=== PATIENT | female | born 1980 | race Asian ===

== ENCOUNTER 2019-01-13 15:05 | Outpatient (CLI) | payer MEDICARE ==
[~2019-01-13] VITALS: Ht 165.1 cm; Wt 70.9 kg
[2019-01-13 15:09] VITALS: BP 116/68
== END 2019-01-13 15:59 | disposition home or self-care (01) ==
LOC: LDOP 15:05
PROVIDERS: ATTEND Obstetrics & Gynecology
DX: O26.893 Other specified pregnancy related conditions, third trimester (principal); Z3A.35 35 weeks gestation of pregnancy; R10.9 Unspecified abdominal pain; Z88.0 Allergy status to penicillin; Z87.891 Personal history of nicotine dependence
CPT/HCPCS: 59025; 99201; G0463

== ENCOUNTER 2019-02-11 23:23 | Emergency (ER) | payer MEDICARE, MEDICAID ==
[~2019-02-11] VITALS: Ht 165.1 cm; Wt 71.1 kg
[~2019-02-11 23:23] MED LIST: DOCU-131 PO; HYDR-3240 PO; IBUP-1222 PO; LURA40TA PO
[2019-02-12] MEDS ORDERED: SODIUM CHLORIDE FLUSH 10ML SYR IVF ONE
[2019-02-12 00:12] LABS: BASOPHILS # (AUTO) 0.04 x10^3/uL (0-0.1); BASOPHILS % (AUTO) 0 % (0-1); EOSINOPHILS # (AUTO) 0.23 x10^3/uL (0-0.4); EOSINOPHILS % (AUTO) 3 % (1-7); LYMPHOCYTES # (AUTO) 1.78 x10^3/uL (1-3.4); LYMPHOCYTES % (AUTO) 19 % (22-44); MD NO; MEAN CORPUSCULAR HEMOGLOBIN 26.2 pg (27.0-34.8); MEAN CORPUSCULAR VOLUME 84.4 fL (80-100); MONOCYTES # (AUTO) 0.57 x10^3/uL (0.2-0.8); MONOCYTES % (AUTO) 6 % (2-9); NEUTROPHILS # (AUTO) 6.64 x10^3/uL (1.8-6.8); NEUTROPHILS % (AUTO) 72 % (42-75); PLATELET COUNT 348 x10^3/uL (130-400); RED BLOOD COUNT 3.66 x10^6/uL (3.82-5.3); RED CELL DISTRIBUTION WIDTH 17.6 % (9.6-15.2)
[2019-02-12 00:21] LABS: ALBUMIN 2.6 g/dL (3.4-5.0); ANION GAP 7 mmol/L (5-15); CALCIUM 9.1 mg/dL (8.5-10.1); CHLORIDE 106 mmol/L (98-107)
[2019-02-12 00:30] LABS: INTERNATIONAL NORMALIZED RATIO 0.88 (0.93-1.1); PROTHROMBIN TIME 9.3 Seconds (9.6-11.5)
[2019-02-12 00:33] LABS: ALANINE AMINOTRANSFERASE 23 U/L (12-78); ALKALINE PHOSPHATASE 124 U/L (45-117); BILIRUBIN,TOTAL 0.5 mg/dL (0.2-1.0); CREATININE 0.92 mg/dL (0.55-1.02); FREE T4 (FREE THYROXINE) 0.93 ng/dL (0.76-1.46); TOTAL PROTEIN 7.1 g/dL (6.4-8.2)
[2019-02-12] MEDS ORDERED: DEXAMETHASONE 4 MG/ML, 1ML IM ONE (01:00)
[2019-02-12] MEDS ORDERED: DEXAMETHASONE 4 MG/ML, 1ML ONE (01:20)
[2019-02-12 01:27] LABS: MICROSCOPIC NOT IND
[2019-02-12 01:30] LABS: CULTURE INDICATED? NO
[2019-02-12 02:15] VITALS: BP 120/77
== END 2019-02-12 02:17 | disposition home or self-care (01) ==
LOC: ED 23:46
DX: D69.0 Allergic purpura (principal); R22.1 Localized swelling, mass and lump, neck
CPT/HCPCS: 36415; 80053; 81003; 84439; 84443; 84481; 85025; 85610; 85730; 96372; 99283; J1100

== ENCOUNTER 2020-04-18 00:08 | Inpatient (IN) | payer MEDICARE, MEDICAID ==
[~2020-04-18] VITALS: Ht 165.1 cm; Wt 79.5 kg
[~2020-04-18 00:08] MED LIST changes: +HYDR-1067 PO; -HYDR-3240 PO
[2020-04-18 00:15] VITALS: BP 122/81
[2020-04-18] MEDS ORDERED: SODIUM CITRATE/CITRIC ACID 30 ML UDC PO ONE (00:30)
[2020-04-18] MEDS ORDERED: AZITHROMYCIN 500 MG in SODIUM CHLORIDE 0.9% 250 ML IV ONE (00:30)
[2020-04-18] MEDS ORDERED: METOCLOPRAMIDE 5 MG/ML, 2ML IV ONE (00:30)
[2020-04-18] MEDS ORDERED: LACTATED RINGERS 1,000 ML IVBOLUS ONE (00:30)
[2020-04-18] MEDS ORDERED: CALCIUM CARBONATE 500 MG TAB.CHEW PO PRN (00:30)
[2020-04-18] MEDS ORDERED: ONDANSETRON 2MG/ML, 2ML IVPush ONE (00:30)
[2020-04-18] MEDS ORDERED: SODIUM CITRATE/CITRIC ACID 15 ML UDC ONE (00:34)
[2020-04-18] MEDS ORDERED: METOCLOPRAMIDE 5 MG/ML, 2ML ONE (00:34)
[2020-04-18] MEDS ORDERED: NEWBORN KIT ONE (00:34)
[2020-04-18] MEDS ORDERED: OXYTOCIN 30U/ 0.9% NaCL 500ML 500 ML ONE ×2 (00:34→02:24)
[2020-04-18] MEDS ORDERED: FENTANYL PF 100 MCG/2ML ONE (00:46)
[2020-04-18] MEDS ORDERED: CEFAZOLIN 1,000 MG ONE ×2 (00:48)
[2020-04-18] MEDS ORDERED: OXYTOCIN 10 UNITS/ML, 1ML ONE ×4 (00:48)
[2020-04-18] MEDS ORDERED: KETOROLAC 30 MG/1 ML ONE (00:49)
[2020-04-18] MEDS ORDERED: PLEASE ENTER HEIGHT AND WEIGHT MC SCH (01:00)
[2020-04-18 01:10] LABS: BASOPHILS % (AUTO) 0 % (0-1); EOSINOPHILS % (AUTO) 1 % (1-7); LYMPHOCYTES % (AUTO) 23 % (22-44); MEAN CORPUSCULAR HEMOGLOBIN 22.6 pg (27.0-34.8); MEAN CORPUSCULAR HGB CONC 31.1 g/dL (32.4-35.8); MEAN PLATELET VOLUME 8.8 fL (7.4-10.4); MONOCYTES % (AUTO) 6 % (2-9); NEUTROPHILS % (AUTO) 70 % (42-75); PLATELET COUNT 256 x10^3/uL (130-400); RED BLOOD COUNT 4.38 x10^6/uL (3.82-5.3)
[2020-04-18] MEDS ORDERED: MORPHINE SULFATE 4 MG/ML, 1ML IVPush PRN (01:30)
[2020-04-18] MEDS: LACTATED RINGERS 1,000 ML IV SCH ×6 (01:30→21:30)
[2020-04-18] MEDS ORDERED: morphine SULFATE 10 MG/ML, 1ML IVPush PRN ×2 (01:30→03:00)
[2020-04-18] MEDS ORDERED: morphine SULFATE 10 MG/ML, 1ML IM PRN (01:30)
[2020-04-18] MEDS ORDERED: KETOROLAC 30 MG/1 ML IM SCH ×2 (01:30→08:30)
[2020-04-18] MEDS ORDERED: METHYLERGONOVINE 0.2 MG/ML IM PRN (01:30)
[2020-04-18] MEDS ORDERED: IBUPROFEN 800 MG TABLET PO PRN (01:30)
[2020-04-18] MEDS ORDERED: MEPERIDINE/PF 25MG/0.5ML IM PRN (01:30)
[2020-04-18] MEDS ORDERED: CARBOPROST TROMETHAMINE 250 MCG/ML, 1ML IM PRN (01:30)
[2020-04-18] MEDS ORDERED: ACETAMINOPHEN 325 MG TABLET PO PRN ×2 (01:30)
[2020-04-18] MEDS ORDERED: MISOPROSTOL 200 MCG TABLET PR PRN ×4 (01:30)
[2020-04-18] MEDS ORDERED: KETOROLAC 30 MG/1 ML IV SCH (01:30)
[2020-04-18] MEDS ORDERED: HYDROcodone/APAP 5/325 TABLET PO PRN (01:30)
[2020-04-18] MEDS ORDERED: SIMETHICONE 80 MG CHEW TAB PO PRN (01:30)
[2020-04-18] MEDS ORDERED: TRANEXAMIC ACID 100 MG/ML, 10ML IV ONE (01:30)
[2020-04-18] MEDS ORDERED: MEPERIDINE/PF 100 MG/ML IVPush PRN (01:30)
[2020-04-18] MEDS ORDERED: KETOROLAC 30 MG/1 ML IV PRN ×2 (01:30)
[2020-04-18] MEDS ORDERED: MEPERIDINE/PF 50 MG/ML IVPush PRN (01:30)
[2020-04-18] MEDS ORDERED: METOCLOPRAMIDE 5 MG/ML, 2ML IV PRN (01:30)
[2020-04-18] MEDS ORDERED: MEPERIDINE/PF 50 MG/ML IM PRN (01:30)
[2020-04-18] MEDS ORDERED: MISOPROSTOL 200 MCG TABLET SL PRN ×2 (01:30)
[2020-04-18] MEDS ORDERED: TRANEXAMIC ACID 1,000 MG in SODIUM CHLORIDE 0.9% 100 ML IVPB ONE (01:30)
[2020-04-18] MEDS ORDERED: MISOPROSTOL 200 MCG TABLET PO PRN ×3 (01:30)
[2020-04-18 01:54] LABS: MD NO
[2020-04-18] MEDS ORDERED: ONDANSETRON 2MG/ML, 2ML ONE (02:19)
[2020-04-18] MEDS ORDERED: PHENYLEPHRINE 10 MG/ML ONE (02:41)
[2020-04-18] MEDS ORDERED: HYDROcodone/APAP 7.5-325MG/15ML UDC PO PRN (03:00)
[2020-04-18] MEDS ORDERED: DIPHENHYDRAMINE 50 MG/ML, 1ML IVPush PRN (03:00)
[2020-04-18] MEDS ORDERED: FENTANYL PF 100 MCG/2ML IV PRN (03:00)
[2020-04-18] MEDS ORDERED: ONDANSETRON 2MG/ML, 2ML IVPush PRN (03:00)
[2020-04-18] MEDS ORDERED: EPHEDRINE 50 MG/ML, 1ML IVPush PRN (03:00)
[2020-04-18] MEDS: OXYTOCIN 30U/ 0.9% NaCL 500ML 500 ML IV SCH ×3 (03:43→21:30)
[2020-04-18 04:20] VITALS: BP 106/64
[2020-04-18 07:25] VITALS: BP 158/98
[2020-04-18] MEDS: PRENATAL VIT/IRON/FA 1 EACH TABLET PO SCH (08:32)
[2020-04-18] MEDS: DOCUSATE 100 MG CAPSULE PO PRN ×2 (08:32→20:27)
[2020-04-18 10:11] LABS: BASOPHILS % (AUTO) 0 % (0-1); EOSINOPHILS % (AUTO) 0 % (1-7); LYMPHOCYTES % (AUTO) 12 % (22-44); MD NO; MEAN CORPUSCULAR HEMOGLOBIN 22.3 pg (27.0-34.8); MEAN CORPUSCULAR HGB CONC 31.2 g/dL (32.4-35.8); MEAN PLATELET VOLUME 8.6 fL (7.4-10.4); MONOCYTES % (AUTO) 4 % (2-9); NEUTROPHILS % (AUTO) 83 % (42-75); PLATELET COUNT 204 x10^3/uL (130-400); RED BLOOD COUNT 3.82 x10^6/uL (3.82-5.3); RED CELL DISTRIBUTION WIDTH 15.8 % (9.6-15.2)
[2020-04-18] MEDS: HYDROcodone/APAP 5/325 TABLET PO PRN ×3 (12:39→21:23)
[2020-04-18 12:51] VITALS: BP 104/62
[2020-04-18 20:00] VITALS: BP 116/73
[2020-04-18] MEDS: KETOROLAC 30 MG/1 ML IV SCH (20:26)
[2020-04-18] MEDS: LURASIDONE 20 MG TABLET PO SCH (20:27)
[2020-04-19 00:14] VITALS: BP 105/70
[2020-04-19] MEDS: LACTATED RINGERS 1,000 ML IV SCH ×5 (01:30→17:30)
[2020-04-19] MEDS: KETOROLAC 30 MG/1 ML IV SCH ×4 (02:15→19:19)
[2020-04-19] MEDS: HYDROcodone/APAP 5/325 TABLET PO PRN ×6 (02:16→23:26)
[2020-04-19] MEDS: OXYTOCIN 30U/ 0.9% NaCL 500ML 500 ML IV SCH ×2 (07:30→17:30)
[2020-04-19 07:45] VITALS: BP 113/74
[2020-04-19] MEDS: DOCUSATE 100 MG CAPSULE PO PRN (08:24)
[2020-04-19] MEDS: PRENATAL VIT/IRON/FA 1 EACH TABLET PO SCH (09:00)
[2020-04-19 20:00] VITALS: BP 126/82
[2020-04-19] MEDS: LURASIDONE 20 MG TABLET PO SCH (21:00)
[2020-04-20] MEDS: LACTATED RINGERS 1,000 ML IV SCH ×4 (00:40→13:30)
[2020-04-20] MEDS: KETOROLAC 30 MG/1 ML IV SCH ×2 (02:22→07:54)
[2020-04-20] MEDS: OXYTOCIN 30U/ 0.9% NaCL 500ML 500 ML IV SCH ×2 (03:30→13:30)
[2020-04-20] MEDS: HYDROcodone/APAP 5/325 TABLET PO PRN ×5 (03:31→20:36)
[2020-04-20] MEDS: PRENATAL VIT/IRON/FA 1 EACH TABLET PO SCH (07:54)
[2020-04-20] MEDS: DOCUSATE 100 MG CAPSULE PO PRN ×2 (07:54→20:34)
[2020-04-20 08:35] VITALS: BP 128/85
[2020-04-20] MEDS: IBUPROFEN 600 MG TABLET PO PRN ×2 (16:21→22:25)
[2020-04-20 20:27] VITALS: BP 124/82
[2020-04-20] MEDS: LURASIDONE 20 MG TABLET PO SCH (20:37)
[2020-04-21] MEDS: HYDROcodone/APAP 5/325 TABLET PO PRN ×3 (00:30→08:23)
[2020-04-21] MEDS: IBUPROFEN 600 MG TABLET PO PRN (04:28)
[2020-04-21 08:00] VITALS: BP 120/82
[2020-04-21] MEDS: LURASIDONE 20 MG TABLET PO SCH (08:22)
[2020-04-21] MEDS: PRENATAL VIT/IRON/FA 1 EACH TABLET PO SCH (08:22)
[2020-04-21] MEDS: DOCUSATE 100 MG CAPSULE PO PRN (08:22)
[2020-04-21] MEDS ORDERED: IBUP-1222 PO (08:48)
[2020-04-21] MEDS ORDERED: HYDR-1067 PO ×2 (08:48→09:08)
== END 2020-04-21 10:21 | disposition home or self-care (01) | DRG 785 ==
LOC: LDOP 00:08 → LDIP 00:33 → 2NW 04:11
PROVIDERS: ADMIT Obstetrics & Gynecology; ATTEND Obstetrics & Gynecology
PROC: 0UB70ZZ Excision of Bilateral Fallopian Tubes, Open Approach (ICD-10-PCS; principal; 2020-04-18)
PROC: 10D00Z1 Extraction of Products of Conception, Low, Open Approach (ICD-10-PCS; 2020-04-18)
DX: O34.211 Maternal care for low transverse scar from previous cesarean delivery (principal); O69.81X0 Labor and delivery complicated by cord around neck, without compression, not applicable or unspecified; Z20.822 Contact with and (suspected) exposure to COVID-19; Z30.2 Encounter for sterilization; Z37.0 Single live birth; Z79.899 Other long term (current) drug therapy; Z3A.38 38 weeks gestation of pregnancy; Z88.0 Allergy status to penicillin
CPT/HCPCS: 36415; 85025; 86592; 86850; 86900; 87635; 88302; G0378; J0456; J0690; J1885; J2175; J2405; J3010; J2370; J2590; J2765; J7050; J7120

== ENCOUNTER 2020-04-26 17:32 | Emergency (ER) | payer MEDICARE, MEDICAID ==
[~2020-04-26] VITALS: Ht 165.1 cm; Wt 71.8 kg
[~2020-04-26 17:32] MED LIST changes: +LABE100T6 PO
--- NOTE | 2020-04-26 18:18 | NUR ---
TACK MAKER NOTE: L&D DEPT CALLED, PT SYMPTOMOLOGY REVIEWED. PER L&D RN, PT DEFERRED FOR ED WORKUP.
[2020-04-26 18:34] LABS: BASOPHILS % (AUTO) 1 % (0-1); EOSINOPHILS % (AUTO) 3 % (1-7); LYMPHOCYTES % (AUTO) 29 % (22-44); MEAN CORPUSCULAR HEMOGLOBIN 22.5 pg (27.0-34.8); MEAN CORPUSCULAR HGB CONC 30.8 g/dL (32.4-35.8); MEAN PLATELET VOLUME 7.4 fL (7.4-10.4); MONOCYTES % (AUTO) 7 % (2-9); NEUTROPHILS % (AUTO) 61 % (42-75); PLATELET COUNT 386 x10^3/uL (130-400); RED BLOOD COUNT 4.69 x10^6/uL (3.82-5.3); RED CELL DISTRIBUTION WIDTH 17.9 % (9.6-15.2)
[2020-04-26 18:39] LABS: MD NO
[2020-04-26 18:47] LABS: ALBUMIN 3.1 g/dL (3.4-5.0); ANION GAP 8 mmol/L (5-15); CHLORIDE 107 mmol/L (98-107)
[2020-04-26 18:51] LABS: ALANINE AMINOTRANSFERASE 23 U/L (12-78); ALKALINE PHOSPHATASE 122 U/L (45-117); BILIRUBIN,TOTAL 0.4 mg/dL (0.2-1.0); CREATININE 0.81 mg/dL (0.55-1.02); TOTAL PROTEIN 7.8 g/dL (6.4-8.2)
--- NOTE | 2020-04-26 18:51 | NUR ---
Called lab they are processing urine now.
--- NOTE | 2020-04-26 18:55 | NUR ---
PT TO ROOM FROM LOBBY
[2020-04-26 18:59] LABS: MICROSCOPIC AUTO
--- NOTE | 2020-04-26 19:00 | NUR ---
INITIAL PT CONTACT. PT PRESENTS TO ED C/O HTN. PT IS 8 DAYS , DONE AT 38 WEEKS GESTATION. PT WAS READMITTED FROM [facility] AND D/C FROM HOSPITAL YESTERDAY. 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 PT REPORTS MILD CHAMBERLAIN THIS AM, "WHITE VISION" AND DECREASED/MUFFLED HEARING UPON STANDING. PT DENIES ANY SYMPTOMS AT THIS TIME. PT SITTING UPRIGHT ON GURNEY, NADN, VSS. AT BEDSIDE. PT DENIES ANY NEEDS AT THIS TIME. CALL LIGHT AND PERSONAL BELONGINGS WITHIN REACH.
[2020-04-26] MEDS ORDERED: niFEDipine ER 60 MG TABLET.ER PO ONE (20:00)
--- NOTE | 2020-04-26 20:04 | NUR ---
MEDICATION REQUESTED FROM PHARMACY
--- NOTE | 2020-04-26 20:05 | NUR ---
PT SITTING UPRIGHT ON PAULINA FITZGERALD VSS. AT BEDSIDE. PT DENIES ANY NEEDS AT THIS TIME. CALL LIGHT AND PERSONAL BELONGINGS WITHIN REACH.
--- NOTE | 2020-04-26 20:41 | NUR ---
pt ambulatory to bathroom with steady gait. No needs at this time.
[2020-04-26 20:42] VITALS: BP 155/97
--- NOTE | 2020-04-26 20:54 | NUR ---
Patient given discharge instructions and they have confirmed that they understand the instructions. Patient ambulatory with steady gait.
== END 2020-04-26 20:56 | disposition home or self-care (01) ==
LOC: ED 19:14
DX: I10 Essential (primary) hypertension (principal); R51.9 Headache, unspecified
CPT/HCPCS: 36415; 80053; 81001; 83735; 84550; 85025; 87077; 87086; 87147; 99283